=== PATIENT | female | born 1955 | race Caucasian/White ===

== ENCOUNTER → 2017-02-01 | Outpatient (CLI) | payer BC ==
[~2017-02-01] MED LIST: ACET650T10 PO; DICL100G18 TP; VALS1TAB22 PO
--- NOTE | 2017-02-01 14:06 | EKG ---
[facility] [address] [place] [address] Test Date: 2017-02-01 Test Time: 14:08:36 Pat Name: JORGE PENALOZA Department: Room: Gender: F Community Outreach Manager: SAMMY : 1955 Requested By: MERRITT GOMEZ Order Number: [id number] Reading MD: Richard Mane Measurements Intervals [place] Rate: 68 P: 23 VT: 178 QRS: -6 QRSD: 70 T: 2 QT: 396 QTc: 426 Interpretive Statements SINUS RHYTHM LEFTWARD AXIS OTHERWISE NORMAL ECG RI6.01 No previous ECG available for comparison Electronically Signed On 02-02-2017 16:26:01 CDT by Richard Mane
[2017-02-01 14:23] LABS: BASO # 0.1 x10^3/uL (0.0-0.2); BASO % 1 % (0-3); EOS % 1 % (0-3); HEMATOCRIT 41.5 % (36.0-47.0); HEMOGLOBIN 13.9 g/dL (12.0-15.5); LYMPH # 2.6 x10^3/uL (1.0-4.8); LYMPH % 28 % (24-48); MEAN CORPUSCULAR HEMOGLOBIN 29 pg (25-35); MEAN CORPUSCULAR HGB CONC 34 g/dL (31-37); MEAN CORPUSCULAR VOLUME 86 fL (79-100); MONO % 5 % (0-9); NEUT % 65 % (31-73); PLATELET COUNT 200 x10^3/uL (140-400); RED BLOOD COUNT 4.82 x10^6/uL (3.50-5.40); RED CELL DISTRIBUTION WIDTH 14.4 % (11.5-14.5); WHITE BLOOD COUNT 9.3 x10^3/uL (4.0-11.0)
[2017-02-01 14:33] LABS: ALBUMIN 3.3 g/dL (3.4-5.0); CALCIUM 8.3 mg/dL (8.5-10.1); CREATININE 1.1 mg/dL (0.6-1.0); GFR 50.3; POTASSIUM 3.1 mmol/L (3.5-5.1)
[2017-02-01 14:34] LABS: PROTHROMBIN TIME PATIENT 12.7 SEC (11.7-14.0)
--- NOTE | 2017-02-01 16:25 | RAD ---
2 views of the Chest 02/01/2017 3:40 PM Indication: PRE OP EVALUATION FOR RIGHT KNEE ON February. Comparison: None Findings: There is no focal consolidation or infiltrate identified. There is no effusion or pneumothorax. The cardiomediastinal silhouette and pulmonary vasculature are within normal limits. No osseous abnormality is identified. Impression: No evidence of acute cardiopulmonary process.
== END | disposition home or self-care (01) ==
LOC: SURGPAT 13:14
PROVIDERS: ATTEND Orthopaedic Surgery
DX: Z01.818 Encounter for other preprocedural examination (principal)
CPT/HCPCS: 36415; 71020; 80048; 82040; 85027; 85610; 85651; 85730; 87641; 93005

== ENCOUNTER → 2017-05-17 | Outpatient (CLI) | payer BC ==
[2017-05-17 14:13] LABS: BASO # 0.1 x10^3/uL (0.0-0.2); BASO % 1 % (0-3); EOS % 1 % (0-3); HEMOGLOBIN 13.7 g/dL (12.0-15.5); LYMPH # 2.6 x10^3/uL (1.0-4.8); LYMPH % 32 % (24-48); MEAN CORPUSCULAR HEMOGLOBIN 29 pg (25-35); MEAN CORPUSCULAR HGB CONC 34 g/dL (31-37); MEAN CORPUSCULAR VOLUME 87 fL (79-100); MONO % 6 % (0-9); NEUT % 60 % (31-73); PLATELET COUNT 246 x10^3/uL (140-400); RED BLOOD COUNT 4.71 x10^6/uL (3.50-5.40); RED CELL DISTRIBUTION WIDTH 14.4 % (11.5-14.5); WHITE BLOOD COUNT 8.2 x10^3/uL (4.0-11.0)
[2017-05-17 14:17] LABS: BILIRUBIN,URINE NEGATIVE (NEG); GLUCOSE,URINE NEGATIVE (NEG); NITRITE,URINE NEGATIVE (NEG); PROTEIN,URINE NEGATIVE (NEG-TRACE)
[2017-05-17 14:22] LABS: INR 1.1 (0.8-1.1); PROTHROMBIN TIME PATIENT 13.3 SEC (11.7-14.0)
[2017-05-17 14:33] LABS: BACTERIA,URINE MODERATE /HPF (0-FEW); RBC,URINE 0 /HPF (0-2); SQUAMOUS EPITHELIAL CELL,UR MOD /LPF
[2017-05-17 14:35] LABS: ALBUMIN 3.1 g/dL (3.4-5.0); CALCIUM 8.7 mg/dL (8.5-10.1); CREATININE 1.1 mg/dL (0.6-1.0); GFR 50.2
[2017-05-17 14:41] LABS: POTASSIUM 2.7 mmol/L (3.5-5.1)
== END | disposition home or self-care (01) ==
LOC: SURGPAT 13:14
PROVIDERS: ATTEND Orthopaedic Surgery
DX: Z01.818 Encounter for other preprocedural examination (principal); M17.11 Unilateral primary osteoarthritis, right knee; Z96.651 Presence of right artificial knee joint
CPT/HCPCS: 36415; 80048; 81001; 82040; 85025; 85610; 85651; 85730; 87086; 87641

== ENCOUNTER 2017-06-07 08:36 | Inpatient (IN) | payer BC ==
[~2017-06-07] VITALS: Ht 182.9 cm; Wt 145.1 kg
[2017-06-07] VITALS (7 sets, daily range): BP systolic 117–152; BP diastolic 66–81
[~2017-06-07 08:36] MED LIST changes: +CELECOXIB 200 MG CAPSULE. PO PRN; +HYDROcodone/APAP 7.5/325MG 1 TAB TABLET PO PRN; +IV RINGERS,LACTATED 1000ML 1,000 ML IV SCH; +LIDOCAINE 1% PF 2 ML VIAL. ID PRN; +MORPHINE SULFATE 5 MG, KETOROLAC 30 MG, ROPIVacaine 0.5% PF 60 ML, EPINEPHrine 0.5 MG i... INT ART ONE; +ONDANSETRON PF 4 MG/2 ML VIAL. IV PRN; +PROCHLORPERAZINE 10 MG/2 ML VIAL. IV PRN; +TRANEXAMIC ACID 1,000 MG in IV NS 50ML -- 1ST BAG INJ ONE; +TRANEXAMIC ACID 1,000 MG in IV NS 50ML -- 2ND BAG INJ ONE; +fentaNYL PF VIAL 100 MCG/2 ML VIAL IV PRN
[2017-06-07 09:42] LABS: INR 1.1 (0.8-1.1); PROTHROMBIN TIME PATIENT 13.3 SEC (11.7-14.0)
[2017-06-07] MEDS ORDERED: LIDOCAINE 2% PF Vial for OR 5 ML VIAL. ONE (10:00)
[2017-06-07] MEDS ORDERED: PROPOFOL 20 ML IV ONE (10:00)
[2017-06-07] MEDS ORDERED: DEXAMETHASONE SOD PHOS 20 MG/5 ML VIAL. ONE (10:00)
[2017-06-07] MEDS ORDERED: fentaNYL PF VIAL 100 MCG/2 ML VIAL ONE ×3 (10:00→13:07)
[2017-06-07] MEDS ORDERED: ROCURONIUM 50 MG/5 ML VIAL. ONE (10:00)
[2017-06-07] MEDS ORDERED: ONDANSETRON PF 4 MG/2 ML VIAL. ONE (10:00)
[2017-06-07] MEDS ORDERED: SEVOFLURANE > 120 MINUTES. IH ONE (12:04)
[2017-06-07] MEDS ORDERED: NEOSTIGMINE 10 MG/10 ML VIAL. ONE (12:44)
[2017-06-07] MEDS ORDERED: GLYCOPYRROLATE 1 MG/5 ML VIAL. ONE (12:44)
[2017-06-07] MEDS: MORPHINE SULFATE 2 MG/ML DISP.SYRIN. IV PRN ×2 (13:57→14:07)
[2017-06-07] MEDS ORDERED: oxyCODONE/APAP 7.5/325 1 TAB TABLET PO PRN (14:15)
[2017-06-07] MEDS ORDERED: traMADol 50 MG TABLET PO PRN ×2 (14:15)
[2017-06-07] MEDS: HYDROmorphone 2 MG/ML VIAL IV PRN ×2 (14:15→14:26)
[2017-06-07] MEDS ORDERED: MORPHINE SULFATE 4 MG/ML DISP.SYRIN. IV PRN ×2 (14:15)
[2017-06-07] MEDS ORDERED: MORPHINE SULFATE 2 MG/ML DISP.SYRIN. IV PRN (14:15)
[2017-06-07] MEDS ORDERED: CALCIUM CARBONATE 500 MG TAB.CHEW PO PRN (14:15)
[2017-06-07] MEDS ORDERED: ACETAMINOPHEN 325 MG TABLET. PO PRN (14:15)
[2017-06-07] MEDS ORDERED: diphenhydrAMINE 50 MG/ML VIAL IV PRN (14:15)
[2017-06-07] MEDS ORDERED: ZOLPIDEM 5 MG TABLET. PO PRN (14:15)
[2017-06-07] MEDS ORDERED: MORPHINE SULFATE 10 MG/ML VIAL. IV PRN (14:15)
[2017-06-07] MEDS ORDERED: oxyCODONE/APAP 5/325 1 TAB TABLET PO PRN (14:15)
[2017-06-07] MEDS ORDERED: 0.9 % SODIUM CHLORIDE 10 ML DISP.SYRIN. IV PRN (14:15)
[2017-06-07] MEDS ORDERED: fentaNYL PF VIAL 100 MCG/2 ML VIAL IV PRN ×2 (14:15)
[2017-06-07] MEDS ORDERED: HYDROcodone/APAP 10/325 1 TAB TABLET PO PRN (14:15)
[2017-06-07] MEDS ORDERED: PROCHLORPERAZINE 10 MG/2 ML VIAL. IV PRN (14:15)
[2017-06-07] MEDS ORDERED: DEXTROSE 50% 25 GM / 50ML DISP.SYRIN. IV PRN (14:15)
--- NOTE | 2017-06-07 14:45 | RAD ---
Portable right knee, 2 views, 06/07/2017: History: Postop evaluation A right total knee prosthesis is in place in satisfactory position. Surgical skin clips are present anteriorly. A surgical drain is present superolaterally. There is no evidence of a retained surgical instrument, needle or radiopaque sponge on these 2 views.
--- NOTE | 2017-06-07 14:53 | PDOC4 ---
Operative Note Operative Note Date of surgery: 06/07/2017 Preoperative diagnosis: Degenerative joint disease right knee Postoperative diagnosis: Same Operative procedure: Right total knee arthroplasty Surgeon: Gianfranco Anesthesia: GenChuck endotracheal Estimated blood loss 400 mL Complications: None Specimens: Cartilage surfaces to pathology Operative indications: Patient is a 62-year-old female with long-standing right knee pain unresponsive to nonoperative treatment including injection activity modification. She is severely affected in her activities of daily living with start up and activity related pain unresponsive to nonoperative treatments. We have talked about possibility of operative treatment and risk factors of premature wear or loosening infection continued pain medical or other anesthetic complications among others. All her questions were answered consent was obtained and she agrees to proceed with operative evaluation and treatment Operative text: Patient was identified procedure verified patient placed in the supine position on the operative table. After adequate amounts of general endotracheal anesthesia were administered, a thigh tourniquet was placed on the right lower extremity which was prepped and draped in standard sterile fashion. After timeout was performed patient procedure identified and verified a midline incision was made with a medial parapatellar approach patella was everted fat pad was excised capsular bleeding points were controlled with aqua Mantis device and extracapsular with electrocautery. Distal femur was drilled for an intramedullary drill guide set standard position due to her minimal flexion contracture distal cut was made and distal femur was sized at a size 5. Anterior posterior chamfer cuts were then made and extra medullary guide was used to perform a tibial cut and excellent ligament balance in flexion extension and varus and valgus was obtained with a slight medial release. Size 5 tibial component was placed pinned in proper position and trial fit with a cruciate stabilized spacer after notch preparation and again excellent stability noted. Patella was prepared for a biconvex 26 mm patella excess bone was removed to avoid any bony impingement especially laterally and excellent tracking was established. Trial components were removed thorough irrigation carried out normal saline solution and intracapsular bleeding points were controlled again with aqua Mantis device knee surfaces were prepared and dry and really high viscosity bone cement was used to cement in a size 5 right journey tibial baseplate a size 5 right bicruciate stabilized journey to Oxinium femoral component a 26 mm journey biconvex patellar component and a 9 mm spacer was temporarily placed after removing excess bone cement. After reassessment of the trial fitting and ligament balance a 9 mm articular insert was placed with equivalent stability patellofemoral tracking noted. Intra- articular mixture was injected in the joint capsule and surrounding areas pain catheter and Hemovac drain were placed. Retinaculum was closed with interrupted Ethibond suture running strata fix suture #1 buried Vicryl suture and skin closure with nikia a belia dressing was placed. Patient was returned to recovery room in stable condition having tolerated procedure well MERRITT GOMEZ MD Jun 07, 2017 14:53
[2017-06-07] MEDS ORDERED: WARFARIN 7.5 MG TABLET. PO ONE (16:00)
[2017-06-07] MEDS ORDERED: ceFAZolin SODIUM 3 GM in IV DEXTROSE 5% 100 ML IV SCH (17:00)
[2017-06-07] MEDS: FERROUS SULFATE 325 MG TABLET. PO SCH (17:00)
[2017-06-07] MEDS: KETOROLAC 30 MG, BUPIVACAINE MPF 0.25% 20 ML, EPINEPHrine 0.5 MG in TOTAL VOLUME SYRING... INT ART SCH (17:16)
[2017-06-07] MEDS: IV DEXTROSE 5 %-0.45 % NACL 1,000 ML IV SCH (19:20)
[2017-06-07] MEDS: CELECOXIB 200 MG CAPSULE. PO SCH (21:34)
[2017-06-07] MEDS: HYDROcodone/APAP 7.5/325MG 1 TAB TABLET PO PRN (21:38)
[2017-06-08] MEDS: IV DEXTROSE 5 %-0.45 % NACL 1,000 ML IV SCH (02:15)
[2017-06-08 02:48] VITALS: BP 120/65
[2017-06-08] MEDS: KETOROLAC 30 MG, BUPIVACAINE MPF 0.25% 20 ML, EPINEPHrine 0.5 MG in TOTAL VOLUME SYRING... INT ART SCH (05:35)
[2017-06-08 05:42] VITALS: BP 113/60
[2017-06-08] MEDS ORDERED: MAGNESIUM HYDROXIDE 2,400 MG/30 ML ORAL.SUSP. PO PRN (06:00)
[2017-06-08 06:50] LABS: INR 1.3 (0.8-1.1); PROTHROMBIN TIME PATIENT 15.4 SEC (11.7-14.0)
[2017-06-08 07:21] LABS: HEMATOCRIT 34.2 % (36.0-47.0); HEMOGLOBIN 11.3 g/dL (12.0-15.5)
[2017-06-08] MEDS: MULTIVITAMIN with MINERAL TABLET. PO SCH (08:29)
[2017-06-08] MEDS: SENNOSIDES/DOCUSATE 8.6/50MG TABLET. PO SCH (08:29)
[2017-06-08] MEDS: CELECOXIB 200 MG CAPSULE. PO SCH ×2 (08:29→21:13)
[2017-06-08] MEDS: FERROUS SULFATE 325 MG TABLET. PO SCH ×2 (08:30→16:28)
[2017-06-08] MEDS: hydroCHLOROthiazide 25 MG TABLET PO SCH (08:31)
[2017-06-08] MEDS: LOSARTAN POTASSIUM 50 MG TABLET. PO SCH (08:31)
[2017-06-08] MEDS ORDERED: NON FORMULARY ITEM (Valsartan/Hydrochlorothiazide (Diovan Hct 320-25 Mg Tablet) 1 TAB) PO SCH (09:00)
[2017-06-08] MEDS: HYDROcodone/APAP 7.5/325MG 1 TAB TABLET PO PRN ×2 (09:19→20:00)
[2017-06-08] MEDS ORDERED: WARFARIN 5 MG TABLET. PO ONE (16:00)
[2017-06-08] MEDS ORDERED: BISACODYL 10 MG SUPP.RECT. PR PRN (16:00)
[2017-06-08 18:13] VITALS: BP 108/52
--- NOTE | 2017-06-08 21:33 | PDOC ---
PROGRESS NOTES Subjective Subjective Problems overnight: Doing very well pain controlled and getting about reasonably with physical therapy Objective Vital Signs Vital Signs Date Time Temp Pulse Resp B/P (MAP) Pulse Ox O2 Delivery O2 Flow Rate FiO2 06/08/17 20:00 20 Room Air 06/08/17 18:13 97.6 74 108/52 (70) 95 97.6 06/08/17 05:42 2.0 Physical Exam Dressing clean dry intact distal neurovascular status intact good early range of motion Labs Laboratory Tests Test 06/07/17 09:12 06/08/17 06:20 Prothrombin Time 13.3 SEC (11.7-14.0) 15.4 SEC (11.7-14.0) Prothromb Time International Ratio 1.1 (0.8-1.1) 1.3 (0.8-1.1) Activated Partial Thromboplast Time 26 SEC (24-38) Hemoglobin 11.3 g/dL (12.0-15.5) Hematocrit 34.2 % (36.0-47.0) Mean Corpuscular Hemoglobin Concent 33 g/dL (31-37) Laboratory Tests Test 06/08/17 06:20 Hemoglobin 11.3 g/dL (12.0-15.5) Hematocrit 34.2 % (36.0-47.0) Mean Corpuscular Hemoglobin Concent 33 g/dL (31-37) Prothrombin Time 15.4 SEC (11.7-14.0) Prothromb Time International Ratio 1.3 (0.8-1.1) Assessment Assessment POD# [1], S/P [right total knee arthroplasty] Problems: Plan Plan of Care Mobilize with physical therapy standard total knee protocol Coumadin anticoagulation Planned home with outpatient physical therapy on discharge MERRITT GOMEZ MD Jun 08, 2017 21:33
[2017-06-09] MEDS: HYDROcodone/APAP 7.5/325MG 1 TAB TABLET PO PRN ×4 (01:25→20:54)
[2017-06-09 05:06] LABS: INR 2.1 (0.8-1.1); PROTHROMBIN TIME PATIENT 22.4 SEC (11.7-14.0)
[2017-06-09 06:00] VITALS: BP 135/74
[2017-06-09 06:47] LABS: HEMATOCRIT 31.5 % (36.0-47.0); HEMOGLOBIN 10.4 g/dL (12.0-15.5)
[2017-06-09] MEDS: FERROUS SULFATE 325 MG TABLET. PO SCH ×2 (08:00→16:57)
[2017-06-09] MEDS: SENNOSIDES/DOCUSATE 8.6/50MG TABLET. PO SCH (08:01)
[2017-06-09] MEDS: MULTIVITAMIN with MINERAL TABLET. PO SCH (08:01)
[2017-06-09] MEDS: CELECOXIB 200 MG CAPSULE. PO SCH ×2 (08:01→20:53)
[2017-06-09 08:29] VITALS: BP 94/48
[2017-06-09] MEDS: LOSARTAN POTASSIUM 50 MG TABLET. PO SCH (09:00)
[2017-06-09] MEDS: hydroCHLOROthiazide 25 MG TABLET PO SCH (09:00)
--- NOTE | 2017-06-09 13:42 | PATHOLOGY ---
PATHOLOGY REPORT * * * * * * * * FINAL DIAGNOSIS: Segments of bone and soft tissue, right total knee arthroplasty: - Advanced degenerative arthritis. (JPM:pit; 06/09/2017) REPORT ELECTRONICALLY SIGNED BY: Elliott Gardner M.D. DATE/TIME: 06/09/2017 13:39 * * * * * * * * GROSS PATHOLOGY: Received in formalin labeled "Jorge Mathews, right knee bone and tissue," are multiple segments of bone, including tibial plateau, measuring 15.0 x 12.5 x 3.1 cm in aggregate dimensions admixed with soft tissue; meniscus is present. The specimen shows focal eburnation of the articular surfaces. Contour Grinder sections of bone and soft tissue are submitted in cassette A1, following decalcification. (DAC; 06/08/2017) INITIAL CPT CODE(S): A; 33150, 95546 Professional services performed [place] [facility] [place] [address] Technical services performed by [facility] at [address] [place] [address], [place] [address]. SPECIMEN(S) RECEIVED: A.Right knee bone and tissue CLINICAL HISTORY: OA PATIENT: JORGE MATHEWS /AGE: 10 1955 (Age: 62) PATIENT #: [id number] ALT CASE #: SPECIMEN COLLECTION DATE: 06/07/2017 SPECIMEN RECEIVED DATE: 06/07/2017 [facility] - [address] [place] [address] - PHONE: [phone] * * * END OF REPORT * * *
[2017-06-09] MEDS ORDERED: WARFARIN 2 MG TABLET. PO ONE (16:00)
--- NOTE | 2017-06-09 16:16 | PDOC ---
ORTHO PROGRESS NOTES Subjective Patient is doing well. Pain controlled. Denies any chest pain or shortness of breath. Denies any numbness or tingling. Post-op Day: 2 (Right total knee arthroplasty) Vitals Vital Signs Date Time Temp Pulse Resp B/P (MAP) Pulse Ox O2 Delivery O2 Flow Rate FiO2 06/09/17 13:01 Room Air 06/09/17 09:00 80 96/67 06/09/17 06:00 97.6 18 96 97.6 Labs Laboratory Tests Test 06/08/17 06:20 06/09/17 04:45 Hemoglobin 11.3 g/dL (12.0-15.5) 10.4 g/dL (12.0-15.5) Hematocrit 34.2 % (36.0-47.0) 31.5 % (36.0-47.0) Mean Corpuscular Hemoglobin Concent 33 g/dL (31-37) 33 g/dL (31-37) Prothrombin Time 15.4 SEC (11.7-14.0) 22.4 SEC (11.7-14.0) Prothromb Time International Ratio 1.3 (0.8-1.1) 2.1 (0.8-1.1) Laboratory Tests Test 06/09/17 04:45 Hemoglobin 10.4 g/dL (12.0-15.5) Hematocrit 31.5 % (36.0-47.0) Mean Corpuscular Hemoglobin Concent 33 g/dL (31-37) Prothrombin Time 22.4 SEC (11.7-14.0) Prothromb Time International Ratio 2.1 (0.8-1.1) Notes Patient is awake and alert sitting up in chair. Breathing unlabored, no acute distress. She is alert and oriented. Neurovascular intact right lower extremity. Moderate edema right lower extremity. Problems: (1) Right knee DJD Assessment and Plan Continue PT OT, weightbearing as tolerated Anticoagulation per pharmacy Pain controlled Anticipate discharge tomorrow Problem Qualifiers (1) Right knee DJD: Osteoarthritis type: primary Qualified Codes: M17.11 - Unilateral primary osteoarthritis, right knee JAZMIN BRIONES APRN Jun 09, 2017 16:16
[2017-06-09 18:15] VITALS: BP 129/66
[2017-06-10 06:33] VITALS: BP 119/69
[2017-06-10 08:19] VITALS: BP 119/66
[2017-06-10] MEDS: HYDROcodone/APAP 7.5/325MG 1 TAB TABLET PO PRN ×2 (08:19→14:03)
[2017-06-10] MEDS: FERROUS SULFATE 325 MG TABLET. PO SCH (08:19)
[2017-06-10] MEDS: CELECOXIB 200 MG CAPSULE. PO SCH (08:19)
[2017-06-10] MEDS: MULTIVITAMIN with MINERAL TABLET. PO SCH (08:19)
[2017-06-10] MEDS: SENNOSIDES/DOCUSATE 8.6/50MG TABLET. PO SCH (08:20)
[2017-06-10] MEDS: hydroCHLOROthiazide 25 MG TABLET PO SCH (08:20)
[2017-06-10 08:21] VITALS: BP 119/66
[2017-06-10] MEDS: LOSARTAN POTASSIUM 50 MG TABLET. PO SCH (08:21)
[2017-06-10 08:34] LABS: HEMATOCRIT 33.1 % (36.0-47.0); HEMOGLOBIN 11.2 g/dL (12.0-15.5)
[2017-06-10 08:46] LABS: INR 2.2 (0.8-1.1); PROTHROMBIN TIME PATIENT 23.1 SEC (11.7-14.0)
[2017-06-10] MEDS ORDERED: WARFARIN 2 MG TABLET. PO ONE (14:00)
== END 2017-06-10 14:29 | disposition home or self-care (01) | DRG 470 ==
LOC: OPSVCIP 08:36 → 4 SOUTHEST 11:50
PROVIDERS: ADMIT Orthopaedic Surgery; ATTEND Orthopaedic Surgery
PROC: 0SRC069 Replacement of Right Knee Joint with Oxidized Zirconium on Polyethylene Synthetic Substitute, Cemented, Open Approach (ICD-10-PCS; principal; 2017-06-07 10:15)
DX: M17.11 Unilateral primary osteoarthritis, right knee (principal)
CPT/HCPCS: 36415; 73560; 85014; 85018; 85610; 85730; 86850; 86900; 86901; 88305; 88311; C1713; J0171; J0690; J0780; J1100; J1170; J1885; J2270; J2405; J2704; J2710; J2795; J3010; J3490; J7030; J7120; 97116; 97150; 97530; 97535; C1769; J2001